=== PATIENT | male | born 1985 | race Caucasian/White ===

== ENCOUNTER 2025-04-07 10:57 | Emergency (ER) | payer OTHER, SELFPAY ==
--- NOTE | 2025-04-07 11:00 | ED.URI ---
HPI - URI/Sore Throat General Chief Complaint: Upper Respiratory Infection Stated Complaint: Sore throat Time Seen by Provider: 04/07/25 11:05 Source: patient Mode of arrival: ambulatory Limitations: no limitations History of Present Illness HPI Narrative: Senthil is a 39-year-old male patient presenting to the clinic today with complaints of sore throat x3 days. He reports he did see his PCP yesterday for this and they testing for strep and was negative. His PCP sent him in a prescription for azithromycin but told him to wait till Friday to start taking it if his symptoms persisted. He reports that his symptoms has worsened and wanted to come in and have it checked. Denies any known fever but has felt feverish. States he has a very bad sore throat. Denies any other URI symptoms. MD elicited complaint: sore throat Related Data Allergies Allergy/AdvReac Type Severity Reaction Status Date / Time No Known Allergies Allergy Verified 04/07/25 11:23 Review of Systems Review of Systems: Pertinent positives per HPI. Patient denies any fever, chills, rash, headache, visual changes, dizziness, cough, shortness of breath, chest pain, palpitations, nausea, vomiting, diarrhea, constipation, abdominal pain, or any urinary issues. PMFSH Past Medical History Medical History Pharyngitis, acute BMI 28.0-28.9,adult BMI 30.0-30.9,adult Family History Family History Grandparent Hypertension Carcinoma of colon Father Breast cancer Social History Social History Smoking status: Never smoker Alcohol intake: current Substance use: never Comments At the time of my signature, I reviewed and agree with the nursing past medical, surgical, social, and family history. There is no relevant family history pertinent to the patient complaint. Exam Narrative: General: Well-developed, well nourished, in no apparent distress Head: Normocephalic, atraumatic Eyes: Pupils equally round and reactive to light bilaterally, EOM intact, sclera and conjunctive clear, no discharge, lids normal Ears: TMs intact and clear, ear canals clear, no drainage, grossly hearing normal. Nose: Nares patent, no discharge, no inflammation, no sinus tenderness. Mouth: Oral pharynx red with bilateral tonsillar enlargement without lesions or masses, good dentition, MMM. Neck: Supple, trachea midline, enlargement of anterior cervical nodes, no thyroid masses or goiter palpable. Cardio: Regular rate and rhythm, s1 and s2 normal, no murmur appreciated. Resp: Clear to auscultation bilaterally, no rhonchi, rales, wheezing or rubs Course Course Emergency Course: Portions of this record may have been created with voice recognition software. Level of Care: Express Care Visit Vital Signs Vital signs: Vital Signs Temperature 36.6 C 04/07/25 11:02 Pulse Rate 89 04/07/25 11:02 Respiratory Rate 16 04/07/25 11:02 Blood Pressure 142/97 H 04/07/25 11:02 Pulse Oximetry 99 04/07/25 11:02 Oxygen Delivery Room Air 04/07/25 11:02 Temperature 36.6 C 04/07/25 11:02 Pulse Rate 89 04/07/25 11:02 Respiratory Rate 16 04/07/25 11:02 Blood Pressure 142/97 H 04/07/25 11:02 Pulse Oximetry 99 04/07/25 11:02 Oxygen Delivery Room Air 04/07/25 11:02 Vital signs reviewed MDM - URI/Sore Throat MDM Narrative Medical decision making narrative: At the time of visit patient is resting comfortably on the exam table. Patient appears to be nontoxic. Labs: Strep and mono testing were both negative in the clinic today. We will send strep for culture. Plan: I suspect patient has acute pharyngitis. Patient already has prescription for azithromycin. Discussed with the patient that if you would like to wait till Friday discharge the medications he can to see if his symptoms improved however if he is feeling worse he may start the antibiotics. Supportive measures were discussed with the patient and they voiced understanding discharge instructions and agrees to treatment plan. Return precautions reviewed Differential Diagnosis Differential diagnosis: Likely upper respiratory infection, otitis media, sinusitis, viral infection, bronchitis, influenza, pharyngitis and other (COVID) Lab Data Labs: Lab Results 04/07/25 Range/Units 11:04 POC Grp A Strep Screen Negative (Negative) Discharge Plan Discharge Clinical Impression: Acute pharyngitis Qualifiers: Pharyngitis/tonsillitis etiology: unspecified etiology Qualified Code(s): J02.9 - Acute pharyngitis, unspecified Patient Disposition: Home Condition: Stable Instructions: Antibiotic Form, Pharyngitis (ED) Additional Instructions: Strep and mono testing was negative in the clinic today May start the Z-Eric if your symptoms are worsening as discussed Increase fluids and stay well hydrated Tylenol/motrin for pain/fever Flonase and OTC antihistamines as directed Vicks vapor rub to open sinuses Sinus rinses for congestion Cepacol spray, cough drops, throat lozenges, warm tea with honey/lemon, gargle salt water to soothe throat BRAT diet for diarrhea Clear liquids x 24 hours then advance as tolerated for nausea/vomiting Go to the ED if you develop a worsening in your condition- high fever not controlled by Tylenol or Motrin, dehydration, weakness, lethargy, shortness of breath, or chest pain. Follow up with your PCP in 3-5 days if symptoms persist. Patient Language: Hungarian Prescriptions: No Action azithromycin 250 mg tablet See Rx Instructions PO .COMPLEX Qty: 6 0RF Rx Instructions: For 250 mg dose pack: take 500 mg today (day 1), then 250 mg for 4 days (days 2-5) PO Follow-up/Referrals: Dusty Mata MD [Primary Care Provider] - Time of Disposition: 11:41 Quality NIHSS Nursing Documentation ED NIHSS nursing documentation: reviewed/agree
[2025-04-07 11:02] VITALS: BP 142/97; PULSE 89; RESP 16; TEMP 36.6; O2SAT 99
[2025-04-07 11:27] LABS: EDSTREPNEGPOS1 Negative (Negative)
[2025-04-07 11:41] LABS: EDMONONEGPOS Negative (Positive)
== END 2025-04-07 11:43 | disposition home or self-care (01) ==
PROVIDERS: Emergency Provider Nurse Practitioner Family; PCP Family Medicine
DX: J02.9 Acute pharyngitis, unspecified (principal)
CPT/HCPCS: 36416; 86308; 87081; 87880; 99213; G0463